=== PATIENT | female | born 1975 | race African-American/Black ===

== ENCOUNTER 2017-08-24 15:11 | Emergency (ER) | payer OTHER ==
[~2017-08-24] VITALS: Ht 167.6 cm; Wt 77.0 kg
[2017-08-24] MEDS ORDERED: ACETAMINOPHEN 325MG TABLET PO ONE (15:30)
[2017-08-24] MEDS ORDERED: FAMOTIDINE 20MG/2ML VIAL IV ONE (15:30)
[2017-08-24] MEDS ORDERED: METHYLPREDNISOLONE SOD SUCC 125 MG/2 ML VIAL IV ONE (15:30)
[2017-08-24] MEDS: DIPHENHYDRAMINE 50MG/ML VIAL IV ONE ×2 (16:01→16:02)
[2017-08-24 18:20] VITALS: BP 103/63
== END 2017-08-24 18:29 | disposition home or self-care (01) ==
LOC: ER 15:11
DX: T36.0X1A Poisoning by penicillins, accidental (unintentional), initial encounter (principal); L27.0 Generalized skin eruption due to drugs and medicaments taken internally; R13.10 Dysphagia, unspecified; R07.89 Other chest pain; R22.1 Localized swelling, mass and lump, neck; Y92.098 Other place in other non-institutional residence as the place of occurrence of the external cause; R03.0 Elevated blood-pressure reading, without diagnosis of hypertension; Z88.0 Allergy status to penicillin
CPT/HCPCS: 96374; 96375; 99284; J2930; J3490; Z7610; J1200